=== PATIENT | male | born 1970 | race Caucasian/White ===

== ENCOUNTER 2017-04-01 01:08 | Emergency (ER) | payer MEDICAID ==
[~2017-04-01] VITALS: Ht 172.7 cm; Wt 86.2 kg
[2017-04-01 01:26] VITALS: BP_SYST 118
[2017-04-01] MEDS: LORATADINE 10 MG TABLET PO ONE (02:46)
[2017-04-01] MEDS: PREDNISONE 20 MG TABLET PO ONE (02:46)
[2017-04-01 03:34] VITALS: BP_SYST 120
== END 2017-04-01 03:34 | disposition home or self-care (01) ==
LOC: SED 01:08
DX: L50.9 Urticaria, unspecified (principal)
CPT/HCPCS: 99283; J7512